=== PATIENT | male | born 1970 ===

== ENCOUNTER 2016-12-30 17:46 | Inpatient (IN) ==
[2016-12-30 18:42] LABS: Basophils # 0.1 10*3/uL (0.0-0.2); Basophils % 0.4 % (0.0-0.8); Eosinophils % 0.2 % (0.00-10.9); Hematocrit 40.7 VOL% (42.0-52.0); Immature Granulocytes % 0.8 %; Lymphocytes # 1.6 10*3/uL (1.4-4.0); Lymphocytes % 12.5 % (21.2-54.2); Mean Corpuscular HGB Conc 31.9 GM/DL (32-36); Mean Corpuscular Hemoglobin 29 PG (27-34); Mean Corpuscular Volume 90.8 FL (87-102); Mean Platelet Volume 9.3 FL (9.6-12.0); Monocytes # 0.9 10*3/uL (0.11-0.8); Monocytes % 7.1 % (1.7-12.7); Neutrophils # 10.1 10*3/uL (1.4-7.4); Platelet Count 300 T/CUMM (130-400); Red Blood Count 4.48 MC/CUMM (3.8-5.5); Red Cell Distribution Width 15.2 % (9.3-17.3); White Blood Count 12.8 T/CUMM (4-12)
--- NOTE | 2016-12-30 18:46 | Emergency Department Note ---
Mook Low Emily, am scribing for, and in the presence of, Dhiraj Hinojosa MD 18: 30. Ashish Low Robert M, MD, personally performed the services described in this documentation, ascribed by Jovanna Delavlle in my presence, and it is both accurate and complete [id number] . Arrival - Arrival Chief Complaint: Extremity Problem Stated Complaint: INFECTED RIGHT LITTLE TOE ED Nursing Triage Note: pt was transfered from [facility] for an infection 4th toe on rt foot. pt states toe is purple also black Mode of Arrival: Ambulatory Limitations: No Limitations Source: Patient - History of Present Illness HPI Narrative: Pt is a 46 y/o male who was transferred from [facility] for further evaluation of right 4th toe. Pt's toe is purple and black in ED. He also had previous amputation of index finger. PMHx of DM. Onset (ago): unknown Consistency: constant Severity: moderate Severity scale (1-10): 8 Quality: aching Allergies/Adverse Reactions: Allergies Allergy/AdvReac Type Severity Reaction Status Date / Time No Known Allergies Allergy Unverified 12/13/14 11:26 Home Medications: Home Medications Medication Instructions Recorded Confirmed Type Cinacalcet [Sensipar] 30 mg PO QPM 12/13/14 12/30/16 History Sevelamer Carbonate Tab [Renvela 3,200 mg PO TID W/MEALS 12/13/14 12/30/16 History Tab] Aspirin EC Tab 81 mg PO BEDTIME 12/30/16 12/30/16 History Atorvastatin [Lipitor] 10 mg PO BEDTIME 12/30/16 12/30/16 History Review of System - Review of System 12 point system: reviewed and no additional remarkable complaints except as stated - Review of System Constitutional: Absent: fever Respiratory: Absent: respiratory distress Cardiovascular: Absent: chest pain Gastrointestinal: Absent: abdominal pain, vomiting Musculoskeletal: Present: leg pain (right 4th toe black and purple). Absent: arm pain, back pain, neck pain Skin: Absent: rash Neurological: Absent: headache Medical,Surgical,& Family Hx - Medical History Cardio: History of: Hypertension Endocrine: History of: Diabetes Mellitus (NIDDM) Renal: History of: Dialysis (t th s), Renal Failure - Family History Family History: noncontributory Family History: Reports;: Family Diabetes (mom and 2 brothers) - Social History Smoking Status: Never smoker Frequency of Alcohol Use: None Type of Drug Use: None Functional capacity: independent ambulation Exam Vital Signs: Vital Signs Temperature 97.8 F 12/30/16 17:59 Pulse Rate 88 12/30/16 17:59 Respiratory Rate 18 12/30/16 17:59 Blood Pressure 78/43 12/30/16 17:59 O2 Sat by Pulse Oximetry 95 12/30/16 17:59 - General General appearance: alert, in no apparent distress - Head Head exam: Present: atraumatic, normocephalic - Eye Eye exam: Present: PERRL, EOMI - ENT ENT exam: Present: mucous membranes moist. Absent: mucous membranes dry - Neck Neck exam: Present: full ROM. Absent: tenderness - Chest Chest inspection: Present: symmetric chest wall rise. Absent: tenderness - Respiratory Respiratory exam: Present: normal lung sounds bilaterally. Absent: respiratory distress - Cardiovascular Cardiovascular exam: Present: regular rate, normal rhythm, normal heart sounds - Extremities Exam Extremities exam: Present: full ROM, tenderness (4th toe on right foot is gangrenous). Absent: pedal edema - Neurological Exam Neurological exam: Present: alert, oriented X3, CN II-XII intact. Absent: motor sensory deficit - Psychiatric Psychiatric exam: Present: normal affect, normal mood - Skin Skin exam: Present: warm, dry Course - Reevaluation(s) Reevaluation #1: The patient has chronic hypotension which has been evaluated multiple times most recently in [place] and found to be relatively benign with no source or etiology clearly demonstrated after multiple workups. Time: 18:45 - Consultations Consultation #1: Dr. Juwan Baker requests that the patient be admitted to the hospitalist service given his hemodialysis and he be consulted. Time: 18:45 Disposition Clinical Impression: Diabetic foot infection, End stage renal disease Case discussed with: patient, patient's family Disposition: Still a Patient Condition: Stable Time of Disposition: 18:45
[2016-12-30 18:51] LABS: Calcium 9.1 MG/DL (8.5-10.1); Magnesium 2.7 MG/DL (1.8-2.4); Osmolality,Calculated 278.4 MOS/KG (273-304); Potassium 3.2 MMOL/L (3.5-5.1)
--- NOTE | 2016-12-30 19:18 | Hospitalist History & Physical ---
Assessment and Plan (1) Diabetic foot infection Status: Acute Assessment and plan: The patient is admitted to the hospital for surgical debridement and IV antibiotics. We will consult Dr. Baker and Dr. Goldstein. Current Visit: Yes (2) End stage renal disease Status: Acute Current Visit: Yes History of Present Illness Chief complaint: Infected right fourth toe History of present illness: Mr. Atwood is a 46 year old male [place] patient with end-stage renal disease on hemodialysis 3 times weekly. The patient is admitted in transfer from [facility]. The patient was found to have right fourth toe infection requiring surgical debridement. The patient's toe is moderately infected, continuously symptomatic and worsening. The patient denies shortness of breath, chest pain, palpitations. The patient has had mild fever. The patient is a former smoker. I gave the patient 4 minutes tobacco education concerning avoidance of tobacco use. Home Medications Medication Instructions Recorded Confirmed Type Cinacalcet [Sensipar] 30 mg PO QPM 12/13/14 12/30/16 History Sevelamer Carbonate Tab [Renvela 3,200 mg PO TID W/MEALS 12/13/14 12/30/16 History Tab] Aspirin EC Tab 81 mg PO BEDTIME 12/30/16 12/30/16 History Atorvastatin [Lipitor] 10 mg PO BEDTIME 12/30/16 12/30/16 History Allergies Allergy/AdvReac Type Severity Reaction Status Date / Time No Known Allergies Allergy Unverified 12/13/14 11:26 Medical,Surgical,& Family Hx - Medical History Cardio: History of: Hypertension Endocrine: History of: Diabetes Mellitus (NIDDM) Renal: History of: Dialysis (), Renal Failure - Family History Family History: Reports;: Family Diabetes (mom and 2 brothers) - Social History Smoking Status: Never smoker Frequency of Alcohol Use: None Type of Drug Use: None Marital Status: Single Lives With:: Alone Functional capacity: independent ambulation 12 point system: reviewed and no additional remarkable complaints except as stated Exam - Constitutional Vitals: Period Temp Pulse Resp BP Sys/Ohara Pulse Ox Last 24 Hr 97.8 F-97.8 F 82-88 17-19 78-85/43-58 95-99 Exam: Constitutional System: No distress. No tremulousness. Head: Normocephalic, atraumatic. Ears, Nose and Throat System: No evidence of Otitis or Mastoiditis. No epistaxis or discharge Eyes System: Pupils equal, round, and reactive. Extraocular muscles intact. Neck: Supple, without adenopathy, No jugular venous distention. No thyromegaly , neck mass, or prior surgery apparent. Respiratory System: Chest clear to auscultation. Cardiovascular System: Heart with regular rate and rhythm. No murmur. GI System: Abdomen soft, nontender. Normo active bowel sounds present. Musculoskeletal System: limbs with no pedal edema. Full distal pulses. Right fourth toe shows nonviable tissue, edema, and purulence under the toenail. Neurological System: No discernable sensory deficit. No aphasia Psychiatric System: Conversation is rational Results - Labs CBC & BMP: 12/30/16 18:17 12/30/16 18:17 Lab Results: I have reviewed the past 24 hour labs
[2016-12-30] MEDS ORDERED: DEXTROSE 50% 25 GM/50 ML VIAL IV PRN (21:11)
[2016-12-30] MEDS ORDERED: GLUCAGON 1 MG VIAL IM PRN (21:11)
[2016-12-30] MEDS ORDERED: ONDANSETRON 4 MG/2 ML VIAL IV PRN (21:11)
[2016-12-30] MEDS ORDERED: ACETAMINOPHEN 325 MG TABLET PO PRN (21:11)
[2016-12-30] MEDS ORDERED: ZALEPLON 5 MG CAPSULE PO PRN (21:11)
[2016-12-30] MEDS ORDERED: MORPHINE 2 MG/1 ML SYRINGE IV PRN (21:11)
[2016-12-30] MEDS: ENOXAPARIN 30 MG/0.3 ML SYRINGE SUBCUT SCH (21:22)
[2016-12-30] MEDS ORDERED: VANCOMYCIN INJ 1,000 MG in SODIUM CHLORIDE 0.9% 250 ML IV ONE (21:30)
[2016-12-30] MEDS: ATORVASTATIN 20 MG TABLET PO SCH (21:33)
[2016-12-30] MEDS: CINACALCET 30 MG TABLET PO SCH (21:33)
[2016-12-30] MEDS: ASPIRIN EC 81 MG TABLET PO SCH (21:33)
[2016-12-30] MEDS: INSULIN LISPRO 100 UNIT/ML SUBCUT SCH (21:52)
[2016-12-31 05:44] LABS: Basophils # 0.1 10*3/uL (0.0-0.2); Basophils % 0.5 % (0.0-0.8); Eosinophils # 0.1 10*3/uL (0.0-0.87); Eosinophils % 0.7 % (0.00-10.9); Hematocrit 38.7 VOL% (42.0-52.0); Hemoglobin 12.3 GM/DL (14.0-18.0); Immature Granulocytes % 1.2 %; Immature Granulocytes Absolute 0.15 #; Lymphocytes # 2.3 10*3/uL (1.4-4.0); Mean Corpuscular HGB Conc 31.8 GM/DL (32-36); Mean Corpuscular Hemoglobin 29 PG (27-34); Mean Corpuscular Volume 91.9 FL (87-102); Mean Platelet Volume 9.3 FL (9.6-12.0); Monocytes % 7.8 % (1.7-12.7); Neutrophils # 9.3 10*3/uL (1.4-7.4); Neutrophils % 71.8 % (38.7-73.9); Platelet Count 300 T/CUMM (130-400); Red Blood Count 4.21 MC/CUMM (3.8-5.5); Red Cell Distribution Width 15.2 % (9.3-17.3); White Blood Count 12.9 T/CUMM (4-12)
[2016-12-31 06:12] LABS: Magnesium 2.8 MG/DL (1.8-2.4); Osmolality,Calculated 280.1 MOS/KG (273-304); Potassium 3.8 MMOL/L (3.5-5.1)
[2016-12-31] MEDS: INSULIN LISPRO 100 UNIT/ML SUBCUT SCH ×4 (07:29→20:17)
--- NOTE | 2016-12-31 08:31 | General Surgery Consult Note ---
Assessment and Plan - Time spent with patient Time spent with patient: Less than 30 minutes (1) Diabetic foot infection Problem details: Per surgery. Status: Acute Assessment and plan: This appears to represent necrotizing infection of the right fourth toe. This toe was not viable and needs amputation. This is been discussed with patient and he agrees to proceed. His medical management is being done by hospital medicine. The procedure and risk of been explained and he wished to proceed with surgery today. Current Visit: Yes History of Present Illness Chief complaint: Infected toe History of present illness: Mr. Atwood is a 46 year old male Who had trauma to his right fourth toe about 4 days ago. He thinks that it was stuck by a thorn. He had progressive change in the appearance of the toe with a turning black and becoming painful and red. He is admitted with gangrenous changes of his toe. He denies any history of claudication or lower extremity pain prior to this incident. He has not had fever or chills. Home Medications Medication Instructions Recorded Confirmed Type Cinacalcet [Sensipar] 30 mg PO QPM 12/13/14 12/30/16 History Sevelamer Carbonate Tab [Renvela 3,200 mg PO TID W/MEALS 12/13/14 12/30/16 History Tab] Aspirin EC Tab 81 mg PO BEDTIME 12/30/16 12/30/16 History Atorvastatin [Lipitor] 10 mg PO BEDTIME 12/30/16 12/30/16 History Allergies Allergy/AdvReac Type Severity Reaction Status Date / Time No Known Allergies Allergy Unverified 12/13/14 11:26 Medical,Surgical,& Family Hx - Medical History Cardio: History of: Hypertension Neurology: History of: Vertigo Endocrine: History of: Diabetes Mellitus (NIDDM) Renal: History of: Dialysis (t ), Renal Failure Musculoskeletal: History of: Back/Neck Problems - Surgical History Cardiac Surgeries: Sugical HX of: Vascular Access Devices - Family History Family History: Reports;: Family Diabetes (mom and 2 brothers) - Social History Smoking Status: Never smoker Frequency of Alcohol Use: None Type of Drug Use: None - Constitutional Constitutional: Absent: anorexia, chills, fever(s) Exam - Constitutional Vitals: Period Temp Pulse Resp BP Sys/Ohara Pulse Ox Last 24 Hr 97.6 F-98.4 F 69-88 17-20 78-108/43-66 94-99 General appearance: no acute distress - Head Head exam: Present: normocephalic - Eye Eye exam: Absent: scleral icterus - ENT Mouth exam: Present: normal voice - Neck Neck exam: Present: trachea midline - Respiratory Respiratory exam: Present: clear to auscultation bilaterally. Absent: accessory muscle use - Cardiovascular Cardiovascular exam: Present: RRR - GI/Abdominal GI/Abdominal exam: Present: soft. Absent: distended - Extremities Exam Extremities exam: Present: other (There is gangrene of the right fourth toe). Absent: edema Results - Labs CBC & BMP: 12/31/16 04:59 12/31/16 04:59 Lab Results: I have reviewed the past 24 hour labs
--- NOTE | 2016-12-31 08:42 | Hospitalist Progress Note ---
Assessment and Plan (1) Diabetic foot infection Status: Acute Assessment and plan: The patient is admitted to the hospital for surgical debridement and IV antibiotics. I coordinated care with Dr. Baker today and Dr. Goldstein will see him concerning his dialysis needs. Current Visit: Yes (2) End stage renal disease Status: Chronic Current Visit: Yes Hospitalist: Subjective Interval history: The patient is resting quietly in his room today. I coordinated care with Dr. Baker. He anticipates surgery today to debride or amputate the right fourth toe. Exam - Constitutional Vitals: Period Temp Pulse Resp BP Sys/Ohara Pulse Ox Last 24 Hr 97.6 F-98.4 F 69-88 17-20 78-108/43-66 94-99 Exam: Constitutional System: No distress. No tremulousness. Head: Normocephalic, atraumatic. Ears, Nose and Throat System: No evidence of Otitis or Mastoiditis. No epistaxis or discharge Eyes System: Pupils equal, round, and reactive. Extraocular muscles intact. Neck: Supple, without adenopathy, No jugular venous distention. No thyromegaly , neck mass, or prior surgery apparent. Respiratory System: Chest clear to auscultation. Cardiovascular System: Heart with regular rate and rhythm. No murmur. GI System: Abdomen soft, nontender. Normo active bowel sounds present. Musculoskeletal System: limbs with no pedal edema. Full distal pulses. Right fourth toe shows nonviable tissue, edema, and purulence under the toenail. Neurological System: No discernable sensory deficit. No aphasia Psychiatric System: Conversation is rational Results - Labs CBC & BMP: 12/31/16 04:59 12/31/16 04:59 Lab Results: I have reviewed the past 24 hour labs
--- NOTE | 2016-12-31 10:05 | Nephrology Consult Note ---
History of Present Illness Chief complaint: Pt admitted for gangrenous right 4th toe. Referred for ESRD on CHD. History of present illness: Mr. Atwood is a 46 year old male with ESRD secondary to presumed diabetic nephropathy. Chronic hemodialysis on TTSa at [place] [facility]. Last HD on Wednesday via right upper arm AVF. EDW 80kg. Admission weight 78kg. Denies SOB/ pain. He states they are going to amputate the toe this morning. Home Medications Medication Instructions Recorded Confirmed Type Cinacalcet [Sensipar] 30 mg PO QPM 12/13/14 12/30/16 History Sevelamer Carbonate Tab [Renvela 3,200 mg PO TID W/MEALS 12/13/14 12/30/16 History Tab] Aspirin EC Tab 81 mg PO BEDTIME 12/30/16 12/30/16 History Atorvastatin [Lipitor] 10 mg PO BEDTIME 12/30/16 12/30/16 History Allergies Allergy/AdvReac Type Severity Reaction Status Date / Time No Known Allergies Allergy Unverified 12/13/14 11:26 Medical,Surgical,& Family Hx - Medical History Cardio: History of: Hypertension Neurology: History of: Vertigo Endocrine: History of: Diabetes Mellitus (NIDDM) Renal: History of: Dialysis (t ), Renal Failure Musculoskeletal: History of: Back/Neck Problems - Surgical History Cardiac Surgeries: Sugical HX of: Vascular Access Devices - Family History Family History: Reports;: Family Diabetes (mom and 2 brothers) - Social History Smoking Status: Never smoker Frequency of Alcohol Use: None Type of Drug Use: None Exam - Vital Signs Vital signs: Period Temp Pulse Resp BP Sys/Ohara Pulse Ox Last 24 Hr 97.6 F-98.4 F 69-88 17-20 78-108/43-66 94-99 - General Appearance General appearance: well-developed, well-nourished EENT: ATNC, PERRL, mucous membranes moist, hearing intact, vision intact Neck: no JVD, no thyromegaly Respiratory: no kyphosis, clear Cardiology: no murmurs, no rub, no edema Gastrointestinal: normoactive bowel sounds, no tenderness Integumentary: no rash, warm and dry Neurologic: no focal deficit, no asterixis, alert and oriented x3 Musculoskeletal: no deformities, erythema (necrotic appearing right 4th toe.) Psychiatric: mood/affect appropriate, cooperative Results - Labs CBC & BMP: 12/31/16 04:59 12/31/16 04:59 Assessment and Plan (1) ESRD (end stage renal disease) on dialysis Problem details: [place] CHD today after HD. UF 2-3 L as tolerated by hemodynamics. Status: Acute Current Visit: Yes (2) Diabetic foot infection Problem details: Per surgery. Status: Acute Current Visit: Yes
[2016-12-31] MEDS: SEVELAMER CARBONATE 800 MG TABLET PO SCH ×3 (10:54→20:19)
[2016-12-31] MEDS: PANTOPRAZOLE 40 MG TABLET PO SCH (10:55)
[2016-12-31] MEDS ORDERED: LACTATED RINGERS 1,000 ML IV SCH (12:30)
[2016-12-31] MEDS ORDERED: fentaNYL 100 MCG/2 ML VIAL ONE (13:05)
[2016-12-31] MEDS ORDERED: MIDAZOLAM 2 MG/2 ML VIAL ONE (13:05)
--- NOTE | 2016-12-31 13:11 | Operative Note ---
Date of procedure: 12/31/16 Pre-op diagnosis: Necrotizing infection right fourth toe Post-op diagnosis: same Procedure: Ray amputation right fourth toe and metatarsal head Findings and technique: After informed consent was obtained patient was brought the operating room and placed in supine position. After IV sedation was administered the patient's right foot was prepped and draped in usual sterile fashion. Local anesthesia was infiltrated the base of the fourth toe an elliptical incision made at the base of the fourth toe. Sharp dissection was carried down to the metatarsal phalangeal joint and the toe was disarticulated and removed. Metatarsal head was resected as well and the wound was then irrigated and closed with interrupted 3-0 nylon suture. He appeared to tolerate the procedure well. Anesthesia: MAC, local Surgeon / Physician: Juwan Baker III. Estimated blood loss: minimal Specimens: other (Fourth toe) Condition: stable Disposition: PACU Results - Labs CBC & BMP: 12/31/16 04:59 12/31/16 04:59 Discharge Plan - Discharge Medications No Action Cinacalcet [Sensipar] 30 mg PO QPM Sevelamer Carbonate Tab [Renvela Tab] 3,200 mg PO TID W/MEALS Atorvastatin [Lipitor] 10 mg PO BEDTIME Aspirin EC Tab 81 mg PO BEDTIME - Follow Up or Referral - Forms/Instructions
--- NOTE | 2016-12-31 13:27 | Anesthesia Post-Op ---
Anesthesia Post OP - Post Ansesthetic Evaluation Patient seen in post op: Yes Resp: within normal limits CV: within normal limits Mental: within normal limits Temp: within normal limits [id number]: within normal limits Nausea and Vomiting: within normal limits Pain: within normal limits
--- NOTE | 2016-12-31 18:58 | Dialysis Note ---
Dialysis Note - Dialysis Note Patient seen on dialysis. Tolerated procedure. Blood pressure 102/62. Cardiovascular regular rate lungs are clear.
[2016-12-31] MEDS: ATORVASTATIN 20 MG TABLET PO SCH (21:20)
[2016-12-31] MEDS: ASPIRIN EC 81 MG TABLET PO SCH (21:20)
[2016-12-31] MEDS: ENOXAPARIN 30 MG/0.3 ML SYRINGE SUBCUT SCH (21:20)
[2016-12-31] MEDS: CINACALCET 30 MG TABLET PO SCH (21:20)
--- NOTE | 2017-01-01 07:26 | Event Note ---
He feels well. Took down his dressing and his wound looks good. There were no signs of infection. The necrosis of his toe was distal to the interphalangeal joint and at the point that I did the amputation there was no active infection present. His wound is closed. I think he would be fine for discharge with plans to see me back in the next 1-2 weeks. He is to call our office is that he has any problems in the meantime. I will defer to you about discharge when he is medically ready.
[2017-01-01] MEDS ORDERED: DEXTROSE 50% 25 GM/50 ML SYRINGE IV PRN (08:00)
[2017-01-01] MEDS: INSULIN LISPRO 100 UNIT/ML SUBCUT SCH ×2 (08:30→11:26)
[2017-01-01] MEDS: PANTOPRAZOLE 40 MG TABLET PO SCH (08:36)
[2017-01-01] MEDS: SEVELAMER CARBONATE 800 MG TABLET PO SCH ×2 (08:36→11:26)
--- NOTE | 2017-01-01 09:59 | Discharge Summary ---
Hospital Course - Hospital Course Hospital Course: 01/01/17 - Mr Atwood with PMHx of hypertension, diabetes, and renal failure on dialysis; was admitted 12/30/16. He was found to have right fourth toe infection requiring surgical debridement related to a traumatic injury (possible stuck by a thorn injury). The patient's toe was moderately infected and continuously symptomatic. The patient denies shortness of breath, chest pain, palpitations. The patient had mild fever. At that rime he was admitted and started on antibiotics and surgery was consulted. Nephrology was consulted for chronic renal failure and possibly requiring dialysis. On 12/31/16 Dr Samuel MARTINEZ was able to amputate right fourth toe and metatarsal head related to necrotizing infection. On 12/31/16 he completed dialysis and tolerated well. 01/01/17 - He is feeling much better this a.m. Patient seen and chart reviewed. Denies any fever, chills or shortness of breath. He is ready to be discharged home. Dr Samuel MARTINEZ assessed surgical wound and agrees with discharging home plan with follow-up within the next 2 weeks at his office. Follow-up with Renal physician and dialysis care. He will need to follow-up with his primary care physician as well. - Time spent with patient Time with patient DS: Less than 30 minutes Diagnosis - Discharge Diagnosis (1) Diabetic foot infection Status: Resolved Specialty Discharge - Follow Up or Referrals Follow up with: Juwan Baker III., MD [Physician] - 01/14/17 1:45 pm (1-2 WEEKS) Discharge Plan - Discharge Data Disposition: Disch To Home/Self Care Condition at Discharge: Stable Discharge Diet: diabetic diet Activity: increase activity as tolerated Hygiene: may shower, keep area(s) dry Weight Bearing at Discharge: weight bear as tolerated Driving: not until seen by doctor Contact your physician if you experience:: fever over 101, Redness or swelling, Shortness of breath, Bleeding - Discharge Medications Continue Cinacalcet [Sensipar] 30 mg PO QPM Sevelamer Carbonate Tab [Renvela Tab] 3,200 mg PO TID W/MEALS Atorvastatin [Lipitor] 10 mg PO BEDTIME Aspirin EC Tab 81 mg PO BEDTIME - Follow Up or Referral Follow Up: Juwan Baker III., MD [Physician] - 01/14/17 1:45 pm (1-2 WEEKS) - Forms/Instructions Exam - Constitutional Vitals: Period Temp Pulse Resp BP Sys/Ohara Pulse Ox Last 24 Hr 96.9 F-98.4 F 67-81 14-20 83-109/45-67 92-100 General appearance: normal weight - Head Head exam: Present: normal inspection - Eye Eye exam: Present: EOMI Pupils: Present: MAYELIN - Neck Neck exam: Present: normal inspection - Respiratory Respiratory exam: Present: clear to auscultation bilaterally. Absent: wheezes - Cardiovascular Cardiovascular exam: Present: regular rate and rhythm - GI/Abdominal GI/Abdominal exam: Present: normal bowel sounds, soft. Absent: tenderness, rebound - Extremities Exam Extremities exam: Present: full ROM. Absent: edema (right foot dressing clean dry and intact to surgical amputation site) - Neurological Exam Neurological exam: Present: alert, oriented X3 - Psychiatric Psychiatric exam: Present: normal affect, normal mood - Skin Skin exam: Present: normal color, warm, dry Discharge Results Procedures and tests throughout hospitalization: Pending Orders 12/30/16 18:17 Blood Culture Stat Labs on day of discharge: Labs from last 24 hours 01/01/17 12/31/16 12/31/16 06:56 20:09 10:55 POC Glucose 113 H 95 131 H Preliminary micro results at discharge 12/30/16 18:17 Blood Culture - Preliminary Blood No growth at 1 day 12/30/16 18:17 Blood Culture - Preliminary Blood No growth at 1 day - Additional Comments He will need to follow -up with Dr Samuel MARTINEZ in 1 week. He will need to continue planned dialysis. He will need to follow-up with his primary care physician in 2 weeks. DS: Provider Date of admission: 12/30/16 18:59 Primary care physician: Josafat Jones MD Attending physician on admission: Man Ro MD Consults: 12/30/16 21:11 Consult to Physician [CONS] Routine Comment: diabetic foot infection Consulting Provider: Juwan Baker III. Consulting Provider Notified: Yes When should Consulting Provider be notified: Now Person Notified: elizabeth called Date Notified: 12/31/16 Time Notified: 08:40 Consult to Physician [CONS] Routine Comment: esrd Consulting Provider: Andrez Coronel Consulting Provider Notified: Yes When should Consulting Provider be notified: Now Person Notified: suha called Date Notified: 12/31/16 Time Notified: 07:36 12/31/16 11:00 Consult to Anesthesiology [CONS] Routine Consulting Provider: Reason for Anesthesiology: Pre-op Clearance Discharging clinician: Yvonne Silva NP
--- NOTE | 2017-01-01 10:59 | Nephrology Progress Note ---
Nephrology - PN: Subj Interval history: Pt tolerated amputation of his toe yesterday s apparent complications followed by routine CHD. He states he is being discharged home today. Exam (PN)-Nephrology - Vital Signs Vital signs: Period Temp Pulse Resp BP Sys/Ohara Pulse Ox Last 24 Hr 96.9 F-98.4 F 67-81 14-20 83-109/45-67 92-100 - General Appearance General appearance: well-developed, well-nourished EENT: ATNC, PERRL, mucous membranes moist, hearing intact, vision intact Neck: no JVD, no thyromegaly Respiratory: no kyphosis, clear Cardiology: no murmurs, no rub, no edema Gastrointestinal: normoactive bowel sounds, no tenderness Integumentary: no rash, warm and dry Neurologic: no focal deficit, no asterixis, alert and oriented x3 Musculoskeletal: deformities, no erythema Psychiatric: mood/affect appropriate, cooperative - Lab 12/31/16 04:59 12/31/16 04:59 Most recent lab results Calcium 9.0 MG/DL (8.5-10.1) 12/31/16 04:59 Magnesium 2.8 MG/DL (1.8-2.4) H 12/31/16 04:59 Assessment and Plan (1) ESRD (end stage renal disease) on dialysis Problem details: Stable for d/c home from nephrology standpoint. Status: Acute Assessment and plan: Routine CHD tomorrow at [place] [facility]. Current Visit: Yes (2) Diabetic foot infection Problem details: Per surgery. Status: Resolved Current Visit: Yes Specialty Discharge - Follow Up or Referrals Follow up with: Juwan Baker III., MD [Physician] - 01/14/17 1:45 pm (1-2 WEEKS)
--- NOTE | 2017-01-01 11:38 | Pathology Report from [facility] ---
[facility] ACCESSION # : [id number] PATIENT NAME : Man Atwood ORDERING DR : ZARINA ARCHER III, MD CLINICAL HX: Infected right fourth toe POST-OP DX: Same SPECIMEN INFO: Right fourth toe GROSS DESCRIPTION: Received in formalin labeled MAN ATWOOD is a toe and distal metatarsal. The skin is light brown with skin sloughing and gangrenous hemorrhagic changes present measuring 5.2 x 2.1 x 2 cm. Registered Account Administrator tissue is submitted in one cassette. DIAGNOSIS FOR MAN ATWOOD: RIGHT 4th TOE, AMPUTATION: Gangrene with ulceration, necrosis, suppuration. COLLECTED DATE: 12/31/2016 [facility] REPORT DATE: 01/01/2017 ELECTRONICALLY SIGNED BY: Padmini Hussein M.D. 01/01/2017 - 9:42:20 [facility]
[2017-01-01 11:50] VITALS: BP 104/57
== END 2017-01-01 15:10 | disposition home or self-care (01) | DRG 239 ==
LOC: N.ED 17:46 → N.EDINP 18:59 → N.3E 19:27
PROVIDERS: ADMIT Internal Medicine; ATTEND Internal Medicine

== ENCOUNTER 2018-09-30 16:03 | Inpatient (IN) ==
[2018-09-30] MEDS ORDERED: CEFEPIME 1,000 MG in SODIUM CHLORIDE 0.9% 100 ML IV STA (22:42)
[2018-09-30] MEDS ORDERED: VANCOMYCIN INJ 1,250 MG in SODIUM CHLORIDE 0.9% 250 ML IV STA (22:42)
[2018-09-30] MEDS ORDERED: VANCOMYCIN INJ 1,000 MG in SODIUM CHLORIDE 0.9% 250 ML IV STA (22:55)
[2018-09-30] MEDS ORDERED: DEXTROSE 50% 25 GM/50 ML SYRINGE IV PRN (23:28)
[2018-09-30] MEDS ORDERED: GLUCAGON 1 MG VIAL IM PRN (23:28)
[2018-09-30] MEDS ORDERED: ONDANSETRON 4 MG/2 ML VIAL IV PRN (23:28)
[2018-09-30 23:35] LABS: Basophils # 0.1 10*3/uL (0.0-0.2); Basophils % 0.5 % (0.0-0.8); Eosinophils # 0.1 10*3/uL (0.0-0.87); Eosinophils % 0.5 % (0.00-10.9); Hematocrit 41.8 VOL% (42.0-52.0); Hemoglobin 12.6 GM/DL (14.0-18.0); Immature Granulocytes % 1.1 %; Immature Granulocytes Absolute 0.12 #; Mean Corpuscular HGB Conc 30.1 GM/DL (32-36); Mean Corpuscular Volume 91.9 FL (87-102); Mean Platelet Volume 8.5 FL (9.6-12.0); Neutrophils % 70.9 % (38.7-73.9); Platelet Count 285 T/CUMM (130-400); Red Blood Count 4.55 MC/CUMM (3.8-5.5); Red Cell Distribution Width 14.8 % (9.3-17.3); White Blood Count 11.1 T/CUMM (4-12)
[2018-09-30 23:55] LABS: Alanine Aminotransferase 10 U/L (16-61); Albumin 2.5 G/DL (3.4-5.0); Alkaline Phosphatase 91 U/L (45-117); Aspartate Amino Transferase 9 U/L (0-37); Bilirubin,Total < 0.39 MG/DL (0.2-1.0); Blood Urea Nitrogen 34 MG/DL (7-18); Calcium 9.5 MG/DL (8.5-10.1); Glucose 98 MG/DL (74-106); Osmolality,Calculated 273.4 MOS/KG (273-304); Total Protein 8.5 G/DL (6.4-8.3)
[2018-10-01 00:41] LABS: Sedimentation Rate-Westergren 66 MM/HR (0-15)
[2018-10-01] MEDS ORDERED: POTASSIUM CHLORIDE 20 MEQ TABLET PO ONE (01:22)
[2018-10-01] MEDS: INSULIN LISPRO 100 UNIT/ML SUBCUT SCH ×5 (03:31→23:50)
[2018-10-01 06:05] LABS: Basophils # 0.1 10*3/uL (0.0-0.2); Basophils % 0.7 % (0.0-0.8); Eosinophils # 0.1 10*3/uL (0.0-0.87); Eosinophils % 0.8 % (0.00-10.9); Hematocrit 42.4 VOL% (42.0-52.0); Immature Granulocytes % 0.8 %; Immature Granulocytes Absolute 0.07 #; Lymphocytes # 1.5 10*3/uL (1.4-4.0); Mean Corpuscular HGB Conc 30.7 GM/DL (32-36); Mean Corpuscular Volume 91.8 FL (87-102); Monocytes % 8.5 % (1.7-12.7); Neutrophils % 72.2 % (38.7-73.9); Platelet Count 297 T/CUMM (130-400); Red Blood Count 4.62 MC/CUMM (3.8-5.5); Red Cell Distribution Width 14.8 % (9.3-17.3); White Blood Count 8.8 T/CUMM (4-12)
[2018-10-01 06:22] LABS: Alanine Aminotransferase < 9 U/L (16-61); Albumin 2.5 G/DL (3.4-5.0); Alkaline Phosphatase 88 U/L (45-117); Aspartate Amino Transferase 9 U/L (0-37); Blood Urea Nitrogen 36 MG/DL (7-18); Calcium 9.5 MG/DL (8.5-10.1); Glucose 121 MG/DL (74-106); Osmolality,Calculated 278.1 MOS/KG (273-304); Total Protein 8.1 G/DL (6.4-8.3)
[2018-10-01] MEDS: PANTOPRAZOLE 40 MG TABLET PO SCH (08:59)
[2018-10-01] MEDS: PIPERACILLIN/TAZOBACTAM 3,375 MG in SODIUM CHLORIDE 0.9% 100 ML IV SCH ×2 (08:59→20:24)
[2018-10-01] MEDS ORDERED: VANCOMYCIN INJ 1,000 MG in SODIUM CHLORIDE 0.9% 250 ML IV PRN (16:00)
[2018-10-01] MEDS ORDERED: VANCOMYCIN INJ 1,000 MG in SODIUM CHLORIDE 0.9% 250 ML IV ONE (17:00)
[2018-10-02] MEDS: PIPERACILLIN/TAZOBACTAM 3,375 MG in SODIUM CHLORIDE 0.9% 100 ML IV SCH ×2 (08:27→20:38)
[2018-10-02] MEDS: INSULIN LISPRO 100 UNIT/ML SUBCUT SCH ×3 (12:54→20:50)
[2018-10-02] MEDS: PANTOPRAZOLE 40 MG TABLET PO SCH (12:54)
[2018-10-02] MEDS ORDERED: LIDOCAINE 1% 20 ML VIAL ONE (14:50)
[2018-10-02] MEDS ORDERED: BUPIVACAINE 0.5% 50 ML VIAL ONE (14:50)
[2018-10-02] MEDS ORDERED: DEXTROSE 50% 25 GM/50 ML VIAL IV PRN (18:34)
[2018-10-02] MEDS ORDERED: GLUCAGON 1 MG VIAL IM PRN (18:34)
[2018-10-02] MEDS ORDERED: MIDAZOLAM 2 MG/2 ML VIAL ONE (18:41)
[2018-10-02] MEDS ORDERED: fentaNYL 100 MCG/2 ML VIAL ONE (18:41)
[2018-10-02] MEDS ORDERED: PROPOFOL 200 MG/20 ML VIAL IV ONE (18:41)
[2018-10-03] MEDS: INSULIN LISPRO 100 UNIT/ML SUBCUT SCH ×3 (00:05→11:38)
[2018-10-03] MEDS: PIPERACILLIN/TAZOBACTAM 3,375 MG in SODIUM CHLORIDE 0.9% 100 ML IV SCH (09:09)
[2018-10-03] MEDS: PANTOPRAZOLE 40 MG TABLET PO SCH (09:09)
[2018-10-03] MEDS ORDERED: GENTAMICIN INJ 120 MG in PREMIX 1 EACH IV PRN (09:56)
[2018-10-03] MEDS ORDERED: NEOMYCIN/POLYMYXIN/BACITRACIN OINT 0.9 GM PACK TOP SCH (11:00)
[2018-10-03] MEDS ORDERED: GENTAMICIN INJ 200 MG in SODIUM CHLORIDE 0.9% 100 ML IV ONE (11:00)
[2018-10-03 11:28] VITALS: BP 120/75
== END 2018-10-03 12:01 | disposition home health service (06) | DRG 255 ==
LOC: N.ED 16:03 → N.EDINP 23:28 → SUATTDRO 23:28 → N.2E 23:28
PROVIDERS: ADMIT Internal Medicine; ATTEND Internal Medicine